=== PATIENT | female | born 1950 | race Caucasian/White ===

== ENCOUNTER → 2018-03-22 | Outpatient (CLI) | payer MEDICARE, OTHER ==
[~2018-03-22] MED LIST: ASPI-757 PO; CALC-661 PO; CALC600T63 PO; CIPR-344 PO; DOCU-416 PO; FUR40 PO; FURO-47 PO; LASIX; LEVO75TA68 PO; LEVO75TA76 PO; LEVO88TA45 PO; LEVOXYL; MULT-1335 PO; NAPR220C12 PO; NITR-105 PO; OXYC-865 PO; POTA99TA6 PO; TOLT1TAB6 PO
[2018-03-22 16:33] LABS: PLATELET COUNT, AUTOMATED 238 K/uL (150-450)
[2018-03-22 16:44] LABS: LDL CHOLESTEROL 92 mg/dl
== END ==
LOC: LAB 15:48
PROVIDERS: ATTEND Emergency Medicine
DX: R53.83 Other fatigue (principal); E78.5 Hyperlipidemia, unspecified; M85.80 Other specified disorders of bone density and structure, unspecified site; E03.9 Hypothyroidism, unspecified; R82.90 Unspecified abnormal findings in urine; Z72.9 Problem related to lifestyle, unspecified; B96.20 Unspecified Escherichia coli [E. coli] as the cause of diseases classified elsewhere; Z72.89 Other problems related to lifestyle
CPT/HCPCS: 36415; 81001; 82306; 83970; 84443; 85025; 87077; 87088; 87186; G0472; 82040; 82247; 82310; 82374; 82435; 82465; 82565; 82947; 83718; 84075; 84132; 84155; 84295; 84450; 84460; 84478; 84520; 86803

== ENCOUNTER → 2018-03-24 | Outpatient (CLI) | payer MEDICARE, OTHER ==
[~2018-03-24] MED LIST changes: -FURO-47 PO
--- NOTE | 2018-03-24 09:19 | RADIOLOGY IMAGING REPORT ---
FACILITY: [facility] PATIENT NAME: Herminia Doyle : 1950 MR: [id number] V: [id number] EXAM DATE: ORDERING PHYSICIAN: EWA WEST TECHNOLOGIST: [place] [facility] [place] Herm[place] : 1950 Visit/Account:[id number] Date of Sevice: 03/24/2018 DEXA Scan Clinical history: Osteopenia. Comparison: DEXA scan from 02/18/2016. LUMBAR SPINE: The bone mineral density (BMD) measured from L1-L4 correlates with a Z-score of 0.9 and a T-score of -0.8 which is Normal as defined by the World Health Organization. The corresponding risk of fracture in the lumbar spine is 1-2 times increased compared with a young adult reference population. This v alue has decreased by 2.1 % since the prior study. More than 5% change is considered significant. HIP: Bone mineral density (BMD) measured in the LEFT total hip region correlates with a Z-score -0.3 and a T-score of -1.7 which is osteopenia as defined by the World Health Organization. The corresponding risk of fracture in the hip is 3-4 times increased compared to a young adult reference population. Th is value has increased by 0.1 % since the prior study. More than 5% change is considered significant . T score left femoral neck -2.2 Bone mineral density (BMD) measured in the Femoral Neck region measures 0.736 g/cm?. IMPRESSION: 1. Lumbar spine: Normal. There has been 2.1% decrease in the bone mineral density since the previou s exam. 2. Left Total Hip: Osteopenia. There has been 0.1% increase in the bone mineral density since the p revious exam. 3. Femoral Neck: Bone Mineral Density is 0.736 g/cm? The next DEXA scan of this patient should include the following sites: L1-L4 and the left hip. FRAX? WHO Fracture Risk Assessment Tool link: <http://www.shef.ac.uk/FRAX/tool.jsp?locationValue=9> PLEASE NOTE: 1) The World Health Organization defines low BMD as follows: T-score Normal > -1 Osteopenia < -1 and > -2.5 Osteoporosis < -2.5 without fractures Established osteoporosis < -2.5 with fractures 2) In general, you may wish to consider: Diagnosis Treatment Follow-up DEXA Normal BMD Prevention 2-3 years Osteopenia Prevention/therapy 1-2 years Osteoporosis Therapy Yearly 3) Fracture risk estimated from the T-score is more accurate for vertebral fractures (often spontane ous) than for hip fractures. Report Dictated By: Graciela Madrigal MD at 03/24/2018 9:13 AM Report E-Signed By: Graciela Madrigal MD at 03/24/2018 9:14 AM WSN:[id number]
== END ==
LOC: RAD 01:45
PROVIDERS: ATTEND Emergency Medicine
DX: Z13.820 Encounter for screening for osteoporosis (principal); M85.88 Other specified disorders of bone density and structure, other site
CPT/HCPCS: 77080

== ENCOUNTER → 2018-04-16 | Outpatient (CLI) | payer MEDICARE, OTHER ==
[~2018-04-16] MED LIST changes: +FURO-47 PO
== END ==
LOC: LAB 10:30
PROVIDERS: ATTEND Emergency Medicine
DX: M85.80 Other specified disorders of bone density and structure, unspecified site (principal); R10.9 Unspecified abdominal pain
CPT/HCPCS: 81001; 82274; 82340; 82570

== ENCOUNTER 2018-04-21 14:58 | Outpatient (RCR) | payer MEDICARE, OTHER ==
[~2018-04-21 14:58] MED LIST changes: +IOPAMIDOL 76% 75 ML INFUS BTL 0 ML ONE; +IOPAMIDOL 76% 75 ML INFUS BTL 75 ML ONE
--- NOTE | 2018-04-21 15:32 | RADIOLOGY IMAGING REPORT ---
FACILITY: [facility] PATIENT NAME: Herminia Doyle : 1950 MR: [id number] V: [id number] EXAM DATE: ORDERING PHYSICIAN: EWA WEST TECHNOLOGIST: Location: [facility] Patient: Herminia Doyle : 1950 Visit/Account:[id number] Date of Sevice: 04/21/2018 ABDOMEN/PELVIS WITH CONTRAST HISTORY: Lower abdominal pain. TECHNIQUE: CT abdomen and pelvis with intravenous contrast. One of the following dose optimization techniques was utilized in the performance of this exam: Autom ated exposure control; adjustment of the mA and/or kV according to the patient's size; or use of an i terative reconstruction technique. Specific details can be referenced in the facility's radiology C T exam operational policy. CONTRAST: 75 mL Isovue-370.. COMPARISON: CT abdomen/pelvis dated September 15, 2014 FINDINGS: Visualized lung bases: Partial visualization of a moderate size hiatal hernia. Bibasilar scarring an d/or atelectasis. Hepatobiliary: Few subcentimeter hypodensities within the liver which are too small to characterize however statistically represents simple cysts. There is a 1.1 cm cyst within the anterior right hepat ic lobe. Gallbladder surgically absent. Otherwise negative. Spleen: Negative. Adrenals: Negative. Pancreas: Negative. Kidneys/: There is at least 2 nonobstructing calculi within the right kidney measuring up to 3 mm. There are a few nonspecific subcentimeters hypodensities within the kidneys which are too small to ch aracterize however statistically represents simple cysts. No hydronephrosis. Uterus is surgically abs ent. GI: Moderate to large volume stool within the ascending and transverse colon. The appendix is not vi sualized and may be absent. Otherwise negative. Vessels/spaces/nodes: Mild atherosclerosis. Otherwise negative. Bones/soft tissues: Mild degenerative changes within the lumbar spine and hips. Mild scoliotic curva ture of the lumbar spine. IMPRESSION: 1. No acute findings. 2. Moderate to large volume stool within the ascending and transverse colon. Rectum and correlation f or constipation. 3. At least 2 small nonobstructing stones within the right kidney measuring up to 3 mm. 4. Partial visualization of a moderate-sized hiatal hernia. 5. Additional incidental/chronic findings, as above. Report Dictated By: Narayan Gandhi MD at 04/21/2018 3:21 PM Report E-Signed By: Narayan Gandhi MD at 04/21/2018 3:27 PM WSN:[id number]
[2018-04-22] MEDS ORDERED: ROSU10TA5 PO (10:22)
== END 2018-04-21 18:00 | disposition home or self-care (01) ==
LOC: CT 14:58 → EDSTATUS 14:58 → CT 18:00
PROVIDERS: ATTEND Emergency Medicine
DX: Z01.812 Encounter for preprocedural laboratory examination (principal); R10.30 Lower abdominal pain, unspecified; E83.50 Unspecified disorder of calcium metabolism; K44.9 Diaphragmatic hernia without obstruction or gangrene
CPT/HCPCS: 36415; 74177; 82565; Q9967

== ENCOUNTER → 2018-04-29 | Outpatient (CLI) | payer MEDICARE, OTHER ==
[~2018-04-29] MED LIST changes: -IOPAMIDOL 76% 75 ML INFUS BTL 0 ML ONE; -IOPAMIDOL 76% 75 ML INFUS BTL 75 ML ONE; +ROSU10TA5 PO
--- NOTE | 2018-04-29 15:02 | RADIOLOGY IMAGING REPORT ---
FACILITY: [facility] PATIENT NAME: Herminia Dyole : 1950 MR: [id number] V: [id number] EXAM DATE: ORDERING PHYSICIAN: EWA WEST TECHNOLOGIST: Location: Patient: Herminia Doyle : 1950 Visit/Account:[id number] Date of Sevice: 04/29/2018 THYROID HISTORY: Hypercalciuria COMPARISON: October 12, 2012 FINDINGS: SIZE: Normal. Right lobe: 3.7 x 1.3 x 1 cm Left lobe: 3.1 x 1 x 0.8 cm Isthmus: 3 mm PARENCHYMA: Homogeneous. NODULES: Right lobe: * None discrete. Left lobe: * None discrete. Isthmus: * None discrete. VASCULARITY: Decreased vascularity in both lobes ADDITIONAL FINDINGS: None. IMPRESSION: No abnormality of the thyroid identified other than decreased vascularity of both lobes REFERENCE: 2015 [place] [employer] Management Guidelines for Adult Patients with Thyroid Nodules and D ifferentiated Thyroid Cancer: The [place] [employer] Guidelines Task Force on Thyroid Nodul es and Differentiated Thyroid Cancer. SONOGRAPHIC PATTERNS: * Benign: Purely cystic nodules (no solid component); estimated risk of malignancy <1 percent; no bi opsy recommended. * Very Low Suspicion: Spongiform or partially cystic nodules without any of the sonographic features described in low, intermediate, or high suspicion patterns; estimated risk of malignancy <3 percent; consider FNA at > 2 cm (Observation without FNA is also a reasonable option). * Low Suspicion: Isoechoic or hyperechoic solid nodule, or partially cystic nodule with eccentric so lid areas, without microcalcification, irregular margin or ETE (extra-thyroidal extension), or taller than wide shape; estimated risk of malignancy 5-10 percent; recommend FNA at >1.5 cm. * Intermediate Suspicion: Hypoechoic solid nodule with smooth margins without microcalcifications, E TE (extra-thyroidal extension), or taller than wide shape; estimated risk of malignancy 10-20 percent ; recommend FNA at > 1 cm. * High Suspicion: Solid hypoechoic nodule or solid hypoechoic component of a partially cystic nodule with one or more of the following features: irregular margins (infiltrative, microlobulated), microc alcifications, taller than wide shape, rim calcifications with small extrusive soft tissue component, evidence of ETE (extra-thyroidal extension); estimated risk of malignancy >70-90 percent; recommend FNA at > 1 cm. NOTES: * Although a sonographically suspicious subcentimeter thyroid nodule without evidence of extrathyroi jen extension or sonographically suspicious lymph nodes may be observed with close sonographic follow -up rather than pursuing immediate FNA, patient age and preference may modify decision-making. A > 50% interval increase in nodule volume and/or development of new suspicious sonographic features are felt to be a valid reasons for potential re-aspiration of a nodule previously shown to have benig n FNA cytology. Report Dictated By: Graciela Madrigal MD at 04/29/2018 2:54 PM Report E-Signed By: Graciela Madrigal MD at 04/29/2018 2:57 PM ALMAZN:[id number]
== END ==
LOC: US 01:21
PROVIDERS: ATTEND Emergency Medicine
DX: E83.50 Unspecified disorder of calcium metabolism (principal)
CPT/HCPCS: 76536

== ENCOUNTER → 2018-06-25 | Outpatient (CLI) | payer MEDICARE, OTHER ==
[~2018-06-25] MED LIST changes: +EZET10TA41 PO; +LEVO75TA73 PO
== END ==
LOC: LAB 07:37
PROVIDERS: ATTEND Emergency Medicine
DX: E03.9 Hypothyroidism, unspecified (principal); E78.5 Hyperlipidemia, unspecified
CPT/HCPCS: 36415; 82465; 83718; 84443; 84478